=== PATIENT | male | born 1940 | race Caucasian/White ===

== ENCOUNTER 2021-07-23 10:01 | Day surgery (SDC) | payer OTHER ==
[2021-07-20 16:51] VITALS: BMI 32.1
[2021-07-23] MEDS ORDERED: PROPOFOL 20 ML ONE ×3 (11:42)
[2021-07-23 12:44] VITALS: TEMP 98.4
[2021-07-23 12:48] VITALS: BP 130/66; PULSE 68
== END 2021-07-23 13:10 | disposition home or self-care (01) ==
LOC: FASU-ENDO 10:01
PROVIDERS: ATTEND Internal Medicine Gastroenterology
PROC: 0DB68ZX Excision of Stomach, Via Natural or Artificial Opening Endoscopic, Diagnostic (ICD-10-PCS; 2021-07-23)
PROC: 0DB98ZX Excision of Duodenum, Via Natural or Artificial Opening Endoscopic, Diagnostic (ICD-10-PCS; principal; 2021-07-23 11:59)
DX: D50.9 Iron deficiency anemia, unspecified (principal); K29.50 Unspecified chronic gastritis without bleeding
CPT/HCPCS: 82962

== ENCOUNTER 2022-06-11 13:31 | Inpatient (IN) | payer OTHER ==
[2022-06-11] MEDS ORDERED: VANCOMYCIN 1 GM in D5W (PRE-DOCKED) 1,000 MG/250 ML IVPB ONE (14:49)
[2022-06-11] MEDS ORDERED: PIPERACILLIN/TAZOB 4.5 GM 4.5 GM in DEXTROSE 5%-WATER 100 ML IVPB ONE (14:49)
[2022-06-11] MEDS ORDERED: PIPERACILLIN/TAZOB 4.5 GM 4.5 GM/100 ML BAG IVPB ONE (16:15)
[2022-06-11 16:37] LABS: BASO % 0.8 % (0-2.0); EOS % 3.1 % (0-4.5); HEMATOCRIT 29.9 % (35.4-49); HEMOGLOBIN 10.2 GM/dL (11.7-16.9); MCH 28.9 pg (25.7-33.7); MEAN CELL VOLUME 84.9 fl (80-96); MEAN PLT VOLUME 7.1 fl (7.5-11.1); MONO % 7.1 % (3.8-10.2); PLATELET COUNT 238 10^3/uL (134-434); RBC 3.52 M/mm3 (4.00-5.60); RDW 18.1 % (11.9-15.9); WHITE BLOOD COUNT 8.3 K/mm3 (4.0-10.0)
[2022-06-11] MEDS ORDERED: VANCOMYCIN/WATER FOR INJ (PEG) 1,000 MG/200 ML BAG IVPB ONE (16:47)
[2022-06-11] MEDS ORDERED: SODIUM CHLORIDE 0.9% 500 ML INFUS.BAG IV ONE (16:53)
[2022-06-11 17:22] LABS: ERYTHROCYTE SEDIMENTATION RATE 85 mm/hr (0-20)
[2022-06-11 17:33] LABS: ALBUMIN 3.1 g/dl (3.4-5.0); BILIRUBIN,TOTAL 0.6 mg/dL (0.2-1); BLOOD UREA NITROGEN 42.3 mg/dL (7-18); CALCIUM 9.7 mg/dL (8.5-10.1); TOT PROT 6.5 g/dl (6.4-8.2)
[2022-06-11] MEDS ORDERED: LACTATED RINGERS SOLUTION 1,000 ML IV SCH (18:00)
[2022-06-11] MEDS ORDERED: ACETAMINOPHEN 325 MG TABLET (FP) PO PRN (18:00)
[2022-06-11 19:45] LABS: CALCIUM 9.6 mg/dL (8.5-10.1)
[2022-06-11 19:46] LABS: BLOOD UREA NITROGEN 42.8 mg/dL (7-18)
[2022-06-11 19:48] LABS: CREATININE 1.9 mg/dL (0.55-1.3)
[2022-06-11] MEDS ORDERED: CLINDAMYCIN 900 MG PREMIX IVPB 900 MG/50 ML BAG IVPB ONE (20:45)
[2022-06-11] MEDS: CLINDAMYCIN 900 MG PREMIX IVPB 900 MG/50 ML BAG IVPB SCH (20:59)
[2022-06-11] MEDS ORDERED: PIPERACILLIN/TAZOB 2.25 GM 2.25 GM in DEXTROSE 5%-WATER - 50 ML IVPB SCH (21:00)
[2022-06-11 21:43] LABS: BLOOD UREA NITROGEN 39.8 mg/dL (7-18)
[2022-06-11 21:46] LABS: CREATININE 1.8 mg/dL (0.55-1.3)
[2022-06-11] MEDS ORDERED: HEPARIN NA (PORCINE) 5,000 UNITS/ML 1ML VIAL SQ SCH (22:00)
[2022-06-11] MEDS ORDERED: APIXABAN 2.5 MG TABLET PO SCH (22:00)
[2022-06-11] MEDS ORDERED: APIXABAN 2.5 MG TABLET ONE (23:45)
[2022-06-11] MEDS ORDERED: FUROSEMIDE 40 MG/4 ML INJECTABLE VIAL ONE (23:46)
[2022-06-11] MEDS ORDERED: PIPERACILLIN/TAZOB 2.25 GM 2.25 GM/50 ML BAG IVPB ONE (23:46)
[2022-06-11] MEDS ORDERED: ATORVASTATIN CA 80 MG TABLET (FP) ONE (23:46)
[2022-06-11] MEDS: ATORVASTATIN CA 80 MG TABLET (FP) PO SCH (23:56)
[2022-06-11] MEDS: FUROSEMIDE 40 MG/4 ML INJECTABLE VIAL IVPUSH SCH (23:56)
[2022-06-11] MEDS: CARVEDILOL 25 MG TABLET (FP) PO SCH (23:57)
[2022-06-11] MEDS: PIPERACILLIN/TAZOB 2.25 GM 2.25 GM in DEXTROSE 5%-WATER - 50 ML IVPB SCH (23:57)
[2022-06-12] MEDS: CLINDAMYCIN 900 MG PREMIX IVPB 900 MG/50 ML BAG IVPB SCH ×2 (02:52→10:29)
[2022-06-12] MEDS: PIPERACILLIN/TAZOB 2.25 GM 2.25 GM in DEXTROSE 5%-WATER - 50 ML IVPB SCH ×2 (05:30→09:37)
[2022-06-12 06:23] VITALS: BMI 30.1
[2022-06-12] MEDS: INSULIN SLIDING SCALE (NOVOLOG) 1 VIAL SQ SCH ×3 (06:49→16:39)
[2022-06-12] MEDS: FUROSEMIDE 40 MG/4 ML INJECTABLE VIAL IVPUSH SCH (09:37)
[2022-06-12] MEDS: PANTOPRAZOLE 40 MG TABLET PO SCH (09:37)
[2022-06-12] MEDS: CARVEDILOL 25 MG TABLET (FP) PO SCH ×3 (09:37→21:44)
[2022-06-12] MEDS ORDERED: VANCOMYCIN 1 GM in D5W (PRE-DOCKED) 1,000 MG/250 ML IVPB SCH (10:00)
[2022-06-12] MEDS ORDERED: DIGOXIN 0.125 MG TABLET PO SCH (10:00)
[2022-06-12 10:15] LABS: BASO % 1.3 % (0-2.0); EOS % 4.1 % (0-4.5); HEMATOCRIT 27.7 % (35.4-49); HEMOGLOBIN 9.3 GM/dL (11.7-16.9); LYMPH % 8.9 % (8-40); MCH 28.2 pg (25.7-33.7); MCHC 33.6 g/dl (32.0-35.9); MEAN PLT VOLUME 6.9 fl (7.5-11.1); MONO % 5.9 % (3.8-10.2); NEUT % 79.8 % (42.8-82.8); PLATELET COUNT 219 10^3/uL (134-434); RBC 3.29 M/mm3 (4.00-5.60); RDW 17.7 % (11.9-15.9); WHITE BLOOD COUNT 7.3 K/mm3 (4.0-10.0)
[2022-06-12 10:40] LABS: MAGNESIUM 2.1 mg/dL (1.8-2.4)
[2022-06-12 10:44] LABS: PHOSPHOROUS 3.1 mg/dL (2.5-4.9)
[2022-06-12] MEDS ORDERED: INSULIN (NOVOLOG) ASPART 100 UNITS/ML 10ML VIAL ONE (11:08)
[2022-06-12] MEDS: FUROSEMIDE 40 MG TABLET (FP) PO SCH (13:07)
[2022-06-12 13:38] LABS: RETICULOCYTES 1.29 % (0.5-1.5)
[2022-06-12] MEDS: DOCUSATE SODIUM 100 MG CAPSULE (FP) PO SCH (14:33)
[2022-06-12] MEDS: POLYETHYLENE GLYCOL (HEALTHYLAX) 3350 17 GM PACKET PO SCH (14:33)
[2022-06-12] MEDS: CEFTRIAXONE 1 GM in DEXTROSE 5%-WATER - 50 ML IVPB SCH (14:33)
[2022-06-12] MEDS ORDERED: IRON SUCROSE INJECTION 200 MG in SODIUM CHLORIDE 90 ML IVPB ONE (15:35)
[2022-06-12] MEDS ORDERED: VANCOMYCIN 1 GM/200 ML PREMIX BAG IVPB SCH (17:00)
[2022-06-12] MEDS: ATORVASTATIN CA 80 MG TABLET (FP) PO SCH (21:43)
[2022-06-13 02:45] LABS: PH,URINE 5.5 (5.0-8.0); URINE APPEARANCE CLEAR; URINE BILIRUBIN NEGATIVE (NEGATIVE); URINE COLOR YELLOW; URINE GLUCOSE (UA) NEGATIVE (NEGATIVE); URINE KETONE NEGATIVE (NEGATIVE); URINE LEUK ESTERASE NEGATIVE (NEGATIVE); URINE NITRITE NEGATIVE (NEGATIVE); URINE PROTEIN NEGATIVE (NEGATIVE); URINE UROBILINOGEN 0.2 mg/dL (0.2-1.0)
[2022-06-13] MEDS: FUROSEMIDE 40 MG TABLET (FP) PO SCH ×2 (05:58→14:18)
[2022-06-13] MEDS: INSULIN SLIDING SCALE (NOVOLOG) 1 VIAL SQ SCH ×3 (06:38→17:19)
[2022-06-13] MEDS: CARVEDILOL 25 MG TABLET (FP) PO SCH ×2 (09:24→22:38)
[2022-06-13] MEDS: DOCUSATE SODIUM 100 MG CAPSULE (FP) PO SCH (09:24)
[2022-06-13] MEDS: POLYETHYLENE GLYCOL (HEALTHYLAX) 3350 17 GM PACKET PO SCH (09:24)
[2022-06-13] MEDS: PANTOPRAZOLE 40 MG TABLET PO SCH (09:24)
[2022-06-13 13:36] LABS: EOS % 3.8 % (0-4.5); HEMATOCRIT 28.7 % (35.4-49); HEMOGLOBIN 9.9 GM/dL (11.7-16.9); LYMPH % 17.4 % (8-40); MCH 29.2 pg (25.7-33.7); MCHC 34.5 g/dl (32.0-35.9); MEAN CELL VOLUME 84.6 fl (80-96); MEAN PLT VOLUME 7.4 fl (7.5-11.1); MONO % 9.5 % (3.8-10.2); NEUT % 68.3 % (42.8-82.8); PLATELET COUNT 224 10^3/uL (134-434); RBC 3.39 M/mm3 (4.00-5.60); RDW 17.5 % (11.9-15.9); WHITE BLOOD COUNT 6.6 K/mm3 (4.0-10.0)
[2022-06-13 14:01] LABS: BLOOD UREA NITROGEN 39.4 mg/dL (7-18)
[2022-06-13 14:02] LABS: ALBUMIN 2.9 g/dl (3.4-5.0); CALCIUM 9.2 mg/dL (8.5-10.1)
[2022-06-13] MEDS ORDERED: SODIUM CHLORIDE 0.9% 500 ML INFUS.BAG IV ONE (14:03)
[2022-06-13 14:05] LABS: CREATININE 2.1 mg/dL (0.55-1.3)
[2022-06-13 14:07] LABS: BILIRUBIN,TOTAL 0.6 mg/dL (0.2-1)
[2022-06-13 14:08] LABS: TOT PROT 5.9 g/dl (6.4-8.2)
[2022-06-13] MEDS ORDERED: SODIUM CHLORIDE 500 ML IV STA (14:43)
[2022-06-13] MEDS: ATORVASTATIN CA 80 MG TABLET (FP) PO SCH (22:38)
[2022-06-14] MEDS: FUROSEMIDE 40 MG TABLET (FP) PO SCH ×2 (05:26→14:47)
[2022-06-14] MEDS: INSULIN SLIDING SCALE (NOVOLOG) 1 VIAL SQ SCH ×3 (06:03→17:02)
[2022-06-14 07:38] LABS: ALBUMIN 2.8 g/dl (3.4-5.0); BLOOD UREA NITROGEN 40.8 mg/dL (7-18); CALCIUM 9.3 mg/dL (8.5-10.1); MAGNESIUM 1.9 mg/dL (1.8-2.4)
[2022-06-14 07:41] LABS: CREATININE 2.1 mg/dL (0.55-1.3); PHOSPHOROUS 3.5 mg/dL (2.5-4.9)
[2022-06-14 07:42] LABS: BILIRUBIN,TOTAL 0.6 mg/dL (0.2-1); TOT PROT 5.8 g/dl (6.4-8.2)
[2022-06-14 07:43] LABS: BASO % 1.2 % (0-2.0); EOS % 5.3 % (0-4.5); HEMATOCRIT 28.1 % (35.4-49); HEMOGLOBIN 9.6 GM/dL (11.7-16.9); LYMPH % 17.8 % (8-40); MCH 28.8 pg (25.7-33.7); MEAN CELL VOLUME 84.8 fl (80-96); MEAN PLT VOLUME 7.5 fl (7.5-11.1); NEUT % 66.7 % (42.8-82.8); PLATELET COUNT 205 10^3/uL (134-434); RBC 3.31 M/mm3 (4.00-5.60); RDW 17.4 % (11.9-15.9); WHITE BLOOD COUNT 7.2 K/mm3 (4.0-10.0)
[2022-06-14] MEDS: CARVEDILOL 25 MG TABLET (FP) PO SCH ×2 (09:17→22:04)
[2022-06-14] MEDS: PANTOPRAZOLE 40 MG TABLET PO SCH (09:17)
[2022-06-14] MEDS: CEFTRIAXONE 1 GM in DEXTROSE 5%-WATER - 50 ML IVPB SCH (09:18)
[2022-06-14] MEDS: DOCUSATE SODIUM 100 MG CAPSULE (FP) PO SCH (09:18)
[2022-06-14] MEDS: POLYETHYLENE GLYCOL (HEALTHYLAX) 3350 17 GM PACKET PO SCH (09:18)
[2022-06-14] MEDS ORDERED: CEFTRIAXONE 1 GM in DEXTROSE 5%-WATER - 50 ML IVPB ONE (14:04)
[2022-06-14] MEDS: ATORVASTATIN CA 80 MG TABLET (FP) PO SCH (22:04)
[2022-06-15] MEDS: INSULIN SLIDING SCALE (NOVOLOG) 1 VIAL SQ SCH ×3 (06:03→16:25)
[2022-06-15 08:49] LABS: BASO % 1.5 % (0-2.0); HEMATOCRIT 27.9 % (35.4-49); HEMOGLOBIN 9.6 GM/dL (11.7-16.9); LYMPH % 18.1 % (8-40); MCH 29.2 pg (25.7-33.7); MCHC 34.3 g/dl (32.0-35.9); MEAN CELL VOLUME 85.1 fl (80-96); MEAN PLT VOLUME 7.5 fl (7.5-11.1); MONO % 7.9 % (3.8-10.2); NEUT % 67.5 % (42.8-82.8); PLATELET COUNT 201 10^3/uL (134-434); RBC 3.28 M/mm3 (4.00-5.60); RDW 17.3 % (11.9-15.9); WHITE BLOOD COUNT 7.6 K/mm3 (4.0-10.0)
[2022-06-15 09:08] LABS: BLOOD UREA NITROGEN 41.1 mg/dL (7-18); CALCIUM 9.2 mg/dL (8.5-10.1)
[2022-06-15 09:09] LABS: ALBUMIN 2.8 g/dl (3.4-5.0); MAGNESIUM 1.7 mg/dL (1.8-2.4)
[2022-06-15 09:12] LABS: PHOSPHOROUS 3.4 mg/dL (2.5-4.9)
[2022-06-15 09:13] LABS: BILIRUBIN,TOTAL 0.5 mg/dL (0.2-1); TOT PROT 5.7 g/dl (6.4-8.2)
[2022-06-15] MEDS: POLYETHYLENE GLYCOL (HEALTHYLAX) 3350 17 GM PACKET PO SCH ×2 (09:30→09:35)
[2022-06-15] MEDS: CARVEDILOL 25 MG TABLET (FP) PO SCH ×2 (09:30→22:16)
[2022-06-15] MEDS: PANTOPRAZOLE 40 MG TABLET PO SCH (09:30)
[2022-06-15] MEDS: FUROSEMIDE 40 MG TABLET (FP) PO SCH (09:30)
[2022-06-15] MEDS: DOCUSATE SODIUM 100 MG CAPSULE (FP) PO SCH (09:30)
[2022-06-15] MEDS ORDERED: CEFTRIAXONE 2 GM in DEXTROSE 5%-WATER 100 ML IVPB SCH (10:00)
[2022-06-15] MEDS ORDERED: INSULIN (NOVOLOG) ASPART 100 UNITS/ML 10ML VIAL ONE (21:44)
[2022-06-15] MEDS: ATORVASTATIN CA 80 MG TABLET (FP) PO SCH (22:16)
[2022-06-16] MEDS: INSULIN SLIDING SCALE (NOVOLOG) 1 VIAL SQ SCH ×3 (06:01→16:02)
[2022-06-16 08:25] LABS: BASO % 1.2 % (0-2.0); EOS % 4.1 % (0-4.5); HEMATOCRIT 27.8 % (35.4-49); HEMOGLOBIN 9.2 GM/dL (11.7-16.9); MCH 28.4 pg (25.7-33.7); MCHC 33.1 g/dl (32.0-35.9); MEAN CELL VOLUME 85.7 fl (80-96); MEAN PLT VOLUME 7.7 fl (7.5-11.1); MONO % 8.3 % (3.8-10.2); NEUT % 68.4 % (42.8-82.8); PLATELET COUNT 208 10^3/uL (134-434); RBC 3.24 M/mm3 (4.00-5.60); RDW 17.2 % (11.9-15.9); WHITE BLOOD COUNT 7.5 K/mm3 (4.0-10.0)
[2022-06-16 08:33] LABS: CALCIUM 9.5 mg/dL (8.5-10.1)
[2022-06-16 08:34] LABS: ALBUMIN 2.8 g/dl (3.4-5.0); BLOOD UREA NITROGEN 43.8 mg/dL (7-18); MAGNESIUM 1.7 mg/dL (1.8-2.4)
[2022-06-16 08:38] LABS: PHOSPHOROUS 3.4 mg/dL (2.5-4.9)
[2022-06-16 08:40] LABS: BILIRUBIN,TOTAL 0.5 mg/dL (0.2-1); TOT PROT 5.7 g/dl (6.4-8.2)
[2022-06-16] MEDS: PANTOPRAZOLE 40 MG TABLET PO SCH (09:22)
[2022-06-16] MEDS: POLYETHYLENE GLYCOL (HEALTHYLAX) 3350 17 GM PACKET PO SCH ×2 (09:22→09:24)
[2022-06-16] MEDS: FUROSEMIDE 40 MG TABLET (FP) PO SCH (09:22)
[2022-06-16] MEDS: CARVEDILOL 25 MG TABLET (FP) PO SCH ×2 (09:22→21:01)
[2022-06-16] MEDS: DOCUSATE SODIUM 100 MG CAPSULE (FP) PO SCH (09:22)
[2022-06-16] MEDS ORDERED: MAGNESIUM SULF 50% (8.12 MEQ/2 ML-1 GM VIAL) IVPB ONE (14:45)
[2022-06-16] MEDS ORDERED: INSULIN (NOVOLOG) ASPART 100 UNITS/ML 10ML VIAL ONE (20:48)
[2022-06-16] MEDS: ATORVASTATIN CA 80 MG TABLET (FP) PO SCH (21:01)
[2022-06-17] MEDS: INSULIN SLIDING SCALE (NOVOLOG) 1 VIAL SQ SCH ×3 (07:10→17:06)
[2022-06-17] MEDS: POLYETHYLENE GLYCOL (HEALTHYLAX) 3350 17 GM PACKET PO SCH (09:00)
[2022-06-17] MEDS: FUROSEMIDE 40 MG TABLET (FP) PO SCH (09:00)
[2022-06-17] MEDS: DOCUSATE SODIUM 100 MG CAPSULE (FP) PO SCH (09:00)
[2022-06-17] MEDS: PANTOPRAZOLE 40 MG TABLET PO SCH (09:00)
[2022-06-17] MEDS: CARVEDILOL 25 MG TABLET (FP) PO SCH ×2 (09:00→21:58)
[2022-06-17 09:20] LABS: BASO % 1.2 % (0-2.0); EOS % 3.9 % (0-4.5); HEMATOCRIT 28.7 % (35.4-49); HEMOGLOBIN 9.6 GM/dL (11.7-16.9); LYMPH % 17.6 % (8-40); MCH 28.6 pg (25.7-33.7); MCHC 33.6 g/dl (32.0-35.9); MEAN CELL VOLUME 85.2 fl (80-96); MEAN PLT VOLUME 7.7 fl (7.5-11.1); MONO % 7.8 % (3.8-10.2); NEUT % 69.5 % (42.8-82.8); PLATELET COUNT 203 10^3/uL (134-434); RBC 3.37 M/mm3 (4.00-5.60); RDW 17.5 % (11.9-15.9); WHITE BLOOD COUNT 7.5 K/mm3 (4.0-10.0)
[2022-06-17 09:52] LABS: BLOOD UREA NITROGEN 40.6 mg/dL (7-18); CALCIUM 9.4 mg/dL (8.5-10.1)
[2022-06-17 09:53] LABS: ALBUMIN 2.8 g/dl (3.4-5.0); MAGNESIUM 2.2 mg/dL (1.8-2.4)
[2022-06-17 09:56] LABS: CREATININE 1.9 mg/dL (0.55-1.3); PHOSPHOROUS 2.8 mg/dL (2.5-4.9)
[2022-06-17 09:57] LABS: TOT PROT 5.8 g/dl (6.4-8.2)
[2022-06-17 10:06] LABS: BILIRUBIN,TOTAL 0.5 mg/dL (0.2-1)
[2022-06-17] MEDS: ATORVASTATIN CA 80 MG TABLET (FP) PO SCH (21:58)
[2022-06-18] MEDS: INSULIN SLIDING SCALE (NOVOLOG) 1 VIAL SQ SCH ×3 (07:00→16:27)
[2022-06-18] MEDS: POLYETHYLENE GLYCOL (HEALTHYLAX) 3350 17 GM PACKET PO SCH (09:01)
[2022-06-18] MEDS: DOCUSATE SODIUM 100 MG CAPSULE (FP) PO SCH (09:05)
[2022-06-18] MEDS: FUROSEMIDE 40 MG TABLET (FP) PO SCH (09:05)
[2022-06-18] MEDS: CARVEDILOL 25 MG TABLET (FP) PO SCH ×2 (09:06→21:19)
[2022-06-18] MEDS: PANTOPRAZOLE 40 MG TABLET PO SCH (09:06)
[2022-06-18 09:33] LABS: BASO % 1.4 % (0-2.0); HEMATOCRIT 27.3 % (35.4-49); HEMOGLOBIN 9.1 GM/dL (11.7-16.9); MCH 28.5 pg (25.7-33.7); MCHC 33.4 g/dl (32.0-35.9); MEAN CELL VOLUME 85.4 fl (80-96); MONO % 7.7 % (3.8-10.2); NEUT % 66.9 % (42.8-82.8); PLATELET COUNT 182 10^3/uL (134-434); RDW 16.7 % (11.9-15.9); WHITE BLOOD COUNT 7.3 K/mm3 (4.0-10.0)
[2022-06-18 09:58] LABS: ALBUMIN 2.8 g/dl (3.4-5.0); BLOOD UREA NITROGEN 39.4 mg/dL (7-18)
[2022-06-18 10:00] LABS: CALCIUM 9.3 mg/dL (8.5-10.1)
[2022-06-18 10:01] LABS: CREATININE 1.7 mg/dL (0.55-1.3); PHOSPHOROUS 2.9 mg/dL (2.5-4.9)
[2022-06-18 10:02] LABS: BILIRUBIN,TOTAL 0.5 mg/dL (0.2-1); TOT PROT 5.6 g/dl (6.4-8.2)
[2022-06-18] MEDS ORDERED: LIDOCAINE HCL 2% (20ML MULTI-DOSE VIAL) ONE (14:14)
[2022-06-18] MEDS ORDERED: LIDOCAINE HCL 2% (50ML VIAL) NR ONE (15:44)
[2022-06-18] MEDS ORDERED: BUPIVACAINE HCL/PF 0.5% (5 MG/ML) 30 ML VIAL IJ ONE (16:10)
[2022-06-18] MEDS ORDERED: ONDANSETRON 4 MG/2 ML VIAL IVPUSH PRN ×2 (16:21→16:48)
[2022-06-18] MEDS ORDERED: LACTATED RINGERS SOLUTION 1,000 ML IV SCH ×2 (16:30→16:48)
[2022-06-18] MEDS ORDERED: ACETAMINOPHEN 325 MG TABLET (FP) PO PRN (16:48)
[2022-06-18] MEDS: ATORVASTATIN CA 80 MG TABLET (FP) PO SCH (21:19)
[2022-06-19] MEDS: INSULIN SLIDING SCALE (NOVOLOG) 1 VIAL SQ SCH ×3 (06:07→16:20)
[2022-06-19 08:27] LABS: BASO % 1.3 % (0-2.0); EOS % 4.3 % (0-4.5); HEMATOCRIT 26.9 % (35.4-49); HEMOGLOBIN 9.2 GM/dL (11.7-16.9); LYMPH % 14.6 % (8-40); MCH 29.3 pg (25.7-33.7); MCHC 34.4 g/dl (32.0-35.9); MEAN CELL VOLUME 85.2 fl (80-96); MEAN PLT VOLUME 7.6 fl (7.5-11.1); MONO % 6.7 % (3.8-10.2); NEUT % 73.1 % (42.8-82.8); PLATELET COUNT 178 10^3/uL (134-434); RBC 3.15 M/mm3 (4.00-5.60); RDW 16.8 % (11.9-15.9); WHITE BLOOD COUNT 7.2 K/mm3 (4.0-10.0)
[2022-06-19 08:53] LABS: CALCIUM 9.3 mg/dL (8.5-10.1)
[2022-06-19 08:54] LABS: ALBUMIN 2.8 g/dl (3.4-5.0); BLOOD UREA NITROGEN 37.7 mg/dL (7-18); MAGNESIUM 1.9 mg/dL (1.8-2.4)
[2022-06-19 08:57] LABS: CREATININE 1.8 mg/dL (0.55-1.3); PHOSPHOROUS 2.8 mg/dL (2.5-4.9)
[2022-06-19 08:58] LABS: BILIRUBIN,TOTAL 0.6 mg/dL (0.2-1); TOT PROT 5.6 g/dl (6.4-8.2)
[2022-06-19] MEDS: FUROSEMIDE 40 MG TABLET (FP) PO SCH (09:11)
[2022-06-19] MEDS: CARVEDILOL 25 MG TABLET (FP) PO SCH ×2 (09:12→21:10)
[2022-06-19] MEDS: APIXABAN 2.5 MG TABLET PO SCH ×2 (09:12→21:11)
[2022-06-19] MEDS: DOCUSATE SODIUM 100 MG CAPSULE (FP) PO SCH (09:12)
[2022-06-19] MEDS: PANTOPRAZOLE 40 MG TABLET PO SCH (09:12)
[2022-06-19] MEDS: POLYETHYLENE GLYCOL (HEALTHYLAX) 3350 17 GM PACKET PO SCH (09:40)
[2022-06-19] MEDS: CEFTRIAXONE 1 GM in DEXTROSE 5%-WATER - 50 ML IVPB SCH (17:39)
[2022-06-19] MEDS ORDERED: INSULIN (NOVOLOG) ASPART 100 UNITS/ML 10ML VIAL ONE (18:30)
[2022-06-19] MEDS: ATORVASTATIN CA 80 MG TABLET (FP) PO SCH (21:11)
[2022-06-20] MEDS: INSULIN SLIDING SCALE (NOVOLOG) 1 VIAL SQ SCH ×3 (06:14→17:17)
[2022-06-20] MEDS: CEFTRIAXONE 1 GM in DEXTROSE 5%-WATER - 50 ML IVPB SCH (09:04)
[2022-06-20] MEDS: APIXABAN 2.5 MG TABLET PO SCH ×2 (09:07→21:19)
[2022-06-20] MEDS: DOCUSATE SODIUM 100 MG CAPSULE (FP) PO SCH (09:08)
[2022-06-20] MEDS: CARVEDILOL 25 MG TABLET (FP) PO SCH ×2 (09:08→21:23)
[2022-06-20] MEDS: FUROSEMIDE 40 MG TABLET (FP) PO SCH (09:08)
[2022-06-20] MEDS: POLYETHYLENE GLYCOL (HEALTHYLAX) 3350 17 GM PACKET PO SCH (09:08)
[2022-06-20] MEDS: PANTOPRAZOLE 40 MG TABLET PO SCH (09:08)
[2022-06-20 09:30] LABS: BASO % 1.3 % (0-2.0); HEMATOCRIT 29.2 % (35.4-49); HEMOGLOBIN 9.7 GM/dL (11.7-16.9); LYMPH % 15.8 % (8-40); MCH 28.6 pg (25.7-33.7); MCHC 33.4 g/dl (32.0-35.9); MEAN CELL VOLUME 85.8 fl (80-96); MEAN PLT VOLUME 7.5 fl (7.5-11.1); NEUT % 71.9 % (42.8-82.8); PLATELET COUNT 201 10^3/uL (134-434); RDW 16.9 % (11.9-15.9); WHITE BLOOD COUNT 8.2 K/mm3 (4.0-10.0)
[2022-06-20 09:53] LABS: CALCIUM 9.7 mg/dL (8.5-10.1)
[2022-06-20 09:54] LABS: BLOOD UREA NITROGEN 38.6 mg/dL (7-18); MAGNESIUM 1.7 mg/dL (1.8-2.4)
[2022-06-20 09:57] LABS: CREATININE 1.8 mg/dL (0.55-1.3); PHOSPHOROUS 2.5 mg/dL (2.5-4.9)
[2022-06-20 09:58] LABS: BILIRUBIN,TOTAL 0.6 mg/dL (0.2-1); TOT PROT 6.1 g/dl (6.4-8.2)
[2022-06-20] MEDS ORDERED: MAGNESIUM 2GM/50ML STERILE WATER IVPB IVPB ONE (17:27)
[2022-06-20] MEDS ORDERED: MAGNESIUM SULF 50% (8.12 MEQ/2 ML-1 GM VIAL) IVPB ONE (17:46)
[2022-06-20] MEDS: ATORVASTATIN CA 80 MG TABLET (FP) PO SCH (21:19)
[2022-06-21] MEDS: INSULIN SLIDING SCALE (NOVOLOG) 1 VIAL SQ SCH ×3 (06:09→16:39)
[2022-06-21 09:17] LABS: BASO % 1.9 % (0-2.0); EOS % 5.3 % (0-4.5); HEMATOCRIT 26.2 % (35.4-49); HEMOGLOBIN 8.8 GM/dL (11.7-16.9); LYMPH % 22.3 % (8-40); MCH 28.5 pg (25.7-33.7); MCHC 33.7 g/dl (32.0-35.9); MEAN CELL VOLUME 84.7 fl (80-96); MEAN PLT VOLUME 7.9 fl (7.5-11.1); MONO % 7.8 % (3.8-10.2); NEUT % 62.7 % (42.8-82.8); PLATELET COUNT 189 10^3/uL (134-434); RBC 3.09 M/mm3 (4.00-5.60); WHITE BLOOD COUNT 6.2 K/mm3 (4.0-10.0)
[2022-06-21 09:38] LABS: BLOOD UREA NITROGEN 41.4 mg/dL (7-18); CALCIUM 9.4 mg/dL (8.5-10.1)
[2022-06-21 09:39] LABS: ALBUMIN 2.7 g/dl (3.4-5.0)
[2022-06-21 09:43] LABS: CREATININE 1.8 mg/dL (0.55-1.3); PHOSPHOROUS 3.2 mg/dL (2.5-4.9)
[2022-06-21 09:44] LABS: BILIRUBIN,TOTAL 0.5 mg/dL (0.2-1); TOT PROT 5.5 g/dl (6.4-8.2)
[2022-06-21] MEDS: APIXABAN 2.5 MG TABLET PO SCH ×2 (09:50→21:04)
[2022-06-21] MEDS: PANTOPRAZOLE 40 MG TABLET PO SCH (09:50)
[2022-06-21] MEDS: POLYETHYLENE GLYCOL (HEALTHYLAX) 3350 17 GM PACKET PO SCH (09:50)
[2022-06-21] MEDS: LIDOCAINE 5% TOPICAL PATCH TP SCH (09:50)
[2022-06-21] MEDS: FUROSEMIDE 40 MG TABLET (FP) PO SCH (09:51)
[2022-06-21] MEDS: DOCUSATE SODIUM 100 MG CAPSULE (FP) PO SCH (09:51)
[2022-06-21] MEDS: CARVEDILOL 25 MG TABLET (FP) PO SCH ×2 (09:51→21:03)
[2022-06-21] MEDS: ATORVASTATIN CA 80 MG TABLET (FP) PO SCH (21:03)
[2022-06-21] MEDS: LIDOCAINE PATCH REMOVAL MC SCH (21:05)
[2022-06-22] MEDS: INSULIN SLIDING SCALE (NOVOLOG) 1 VIAL SQ SCH ×3 (07:16→16:30)
[2022-06-22] MEDS: DOCUSATE SODIUM 100 MG CAPSULE (FP) PO SCH (09:21)
[2022-06-22] MEDS: APIXABAN 2.5 MG TABLET PO SCH ×2 (09:22→21:10)
[2022-06-22] MEDS: FUROSEMIDE 40 MG TABLET (FP) PO SCH (09:22)
[2022-06-22] MEDS: CARVEDILOL 25 MG TABLET (FP) PO SCH ×2 (09:22→21:10)
[2022-06-22] MEDS: PANTOPRAZOLE 40 MG TABLET PO SCH (09:22)
[2022-06-22] MEDS: LIDOCAINE 5% TOPICAL PATCH TP SCH (09:23)
[2022-06-22] MEDS: POLYETHYLENE GLYCOL (HEALTHYLAX) 3350 17 GM PACKET PO SCH (09:23)
[2022-06-22 09:57] LABS: BASO % 1.2 % (0-2.0); EOS % 5.4 % (0-4.5); HEMATOCRIT 27.9 % (35.4-49); HEMOGLOBIN 9.3 GM/dL (11.7-16.9); LYMPH % 16.4 % (8-40); MCH 28.6 pg (25.7-33.7); MCHC 33.4 g/dl (32.0-35.9); MEAN CELL VOLUME 85.7 fl (80-96); MEAN PLT VOLUME 7.7 fl (7.5-11.1); MONO % 6.4 % (3.8-10.2); NEUT % 70.6 % (42.8-82.8); PLATELET COUNT 190 10^3/uL (134-434); RBC 3.26 M/mm3 (4.00-5.60); RDW 16.6 % (11.9-15.9); WHITE BLOOD COUNT 6.4 K/mm3 (4.0-10.0)
[2022-06-22 10:20] LABS: CALCIUM 9.6 mg/dL (8.5-10.1)
[2022-06-22 10:21] LABS: ALBUMIN 2.9 g/dl (3.4-5.0); BLOOD UREA NITROGEN 41.9 mg/dL (7-18); MAGNESIUM 1.9 mg/dL (1.8-2.4)
[2022-06-22 10:23] LABS: CREATININE 1.9 mg/dL (0.55-1.3)
[2022-06-22 10:25] LABS: BILIRUBIN,TOTAL 0.6 mg/dL (0.2-1); TOT PROT 5.6 g/dl (6.4-8.2)
[2022-06-22] MEDS: ATORVASTATIN CA 80 MG TABLET (FP) PO SCH (21:11)
[2022-06-22] MEDS: LIDOCAINE PATCH REMOVAL MC SCH (21:11)
[2022-06-23] MEDS: INSULIN SLIDING SCALE (NOVOLOG) 1 VIAL SQ SCH ×3 (06:25→16:15)
[2022-06-23] MEDS ORDERED: INSULIN (NOVOLOG) ASPART 100 UNITS/ML 10ML VIAL ONE (06:41)
[2022-06-23] MEDS: POLYETHYLENE GLYCOL (HEALTHYLAX) 3350 17 GM PACKET PO SCH (09:05)
[2022-06-23] MEDS: LIDOCAINE 5% TOPICAL PATCH TP SCH (09:05)
[2022-06-23] MEDS: PANTOPRAZOLE 40 MG TABLET PO SCH (09:06)
[2022-06-23] MEDS: CARVEDILOL 25 MG TABLET (FP) PO SCH ×2 (09:06→21:57)
[2022-06-23] MEDS: DOCUSATE SODIUM 100 MG CAPSULE (FP) PO SCH (09:06)
[2022-06-23] MEDS: FUROSEMIDE 40 MG TABLET (FP) PO SCH (09:06)
[2022-06-23] MEDS: APIXABAN 2.5 MG TABLET PO SCH ×2 (09:06→21:57)
[2022-06-23 09:37] LABS: BASO % 1.9 % (0-2.0); EOS % 4.9 % (0-4.5); HEMATOCRIT 28.2 % (35.4-49); HEMOGLOBIN 9.3 GM/dL (11.7-16.9); LYMPH % 16.9 % (8-40); MCH 28.4 pg (25.7-33.7); MCHC 33.1 g/dl (32.0-35.9); MEAN CELL VOLUME 85.7 fl (80-96); MEAN PLT VOLUME 7.8 fl (7.5-11.1); MONO % 6.5 % (3.8-10.2); NEUT % 69.8 % (42.8-82.8); PLATELET COUNT 188 10^3/uL (134-434); RBC 3.29 M/mm3 (4.00-5.60); RDW 16.3 % (11.9-15.9); WHITE BLOOD COUNT 6.3 K/mm3 (4.0-10.0)
[2022-06-23 10:09] LABS: ALBUMIN 2.7 g/dl (3.4-5.0); BLOOD UREA NITROGEN 38.2 mg/dL (7-18); MAGNESIUM 1.9 mg/dL (1.8-2.4)
[2022-06-23 10:12] LABS: CREATININE 1.6 mg/dL (0.55-1.3); PHOSPHOROUS 2.9 mg/dL (2.5-4.9)
[2022-06-23 10:14] LABS: BILIRUBIN,TOTAL 0.5 mg/dL (0.2-1); TOT PROT 5.6 g/dl (6.4-8.2)
[2022-06-23] MEDS: ATORVASTATIN CA 80 MG TABLET (FP) PO SCH (21:57)
[2022-06-23] MEDS: LIDOCAINE PATCH REMOVAL MC SCH (21:57)
[2022-06-23] MEDS ORDERED: INSULIN (LEVEMIR) 100 UNITS/ML UNITS SQ SCH ×2 (22:00)
[2022-06-24] MEDS: INSULIN SLIDING SCALE (NOVOLOG) 1 VIAL SQ SCH ×3 (06:31→16:28)
[2022-06-24 09:02] VITALS: RESP 18
[2022-06-24 09:29] LABS: BASO % 1.4 % (0-2.0); HEMATOCRIT 28.2 % (35.4-49); HEMOGLOBIN 9.5 GM/dL (11.7-16.9); LYMPH % 15.2 % (8-40); MCH 29.5 pg (25.7-33.7); MCHC 33.7 g/dl (32.0-35.9); MEAN CELL VOLUME 87.4 fl (80-96); MEAN PLT VOLUME 7.5 fl (7.5-11.1); MONO % 6.7 % (3.8-10.2); NEUT % 71.7 % (42.8-82.8); PLATELET COUNT 176 10^3/uL (134-434); RBC 3.22 M/mm3 (4.00-5.60); RDW 16.7 % (11.9-15.9); WHITE BLOOD COUNT 6.7 K/mm3 (4.0-10.0)
[2022-06-24] MEDS: LIDOCAINE 5% TOPICAL PATCH TP SCH (09:48)
[2022-06-24] MEDS: POLYETHYLENE GLYCOL (HEALTHYLAX) 3350 17 GM PACKET PO SCH (09:51)
[2022-06-24] MEDS: FUROSEMIDE 40 MG TABLET (FP) PO SCH (09:51)
[2022-06-24] MEDS: DOCUSATE SODIUM 100 MG CAPSULE (FP) PO SCH (09:51)
[2022-06-24] MEDS: PANTOPRAZOLE 40 MG TABLET PO SCH (09:51)
[2022-06-24] MEDS: APIXABAN 2.5 MG TABLET PO SCH (09:51)
[2022-06-24] MEDS: CARVEDILOL 25 MG TABLET (FP) PO SCH (09:51)
[2022-06-24 10:01] LABS: ALBUMIN 2.8 g/dl (3.4-5.0); MAGNESIUM 1.8 mg/dL (1.8-2.4)
[2022-06-24 10:03] LABS: BLOOD UREA NITROGEN 38.1 mg/dL (7-18)
[2022-06-24 10:04] LABS: PHOSPHOROUS 2.6 mg/dL (2.5-4.9)
[2022-06-24 10:05] LABS: BILIRUBIN,TOTAL 0.6 mg/dL (0.2-1); TOT PROT 5.6 g/dl (6.4-8.2)
[2022-06-24 10:06] LABS: CREATININE 1.6 mg/dL (0.55-1.3)
[2022-06-24 14:52] VITALS: BP 135/59; PULSE 66; TEMP 98.3
== END 2022-06-24 17:20 | disposition home or self-care (01) | DRG 256 ==
LOC: JER 13:31 → JERBED 21:42 → J6S 06-12 00:55 → J7W 06-13 18:53
PROVIDERS: ADMIT Internal Medicine; ATTEND Internal Medicine
PROC: 0Y6P0Z3 Detachment at Right 1st Toe, Low, Open Approach (ICD-10-PCS; principal; 2022-06-18 16:00)
DX: E11.52 Type 2 diabetes mellitus with diabetic peripheral angiopathy with gangrene (principal); I13.0 Hypertensive heart and chronic kidney disease with heart failure and stage 1 through stage 4 chronic kidney disease, or unspecified chronic kidney disease; L03.115 Cellulitis of right lower limb; M86.9 Osteomyelitis, unspecified; L97.929 Non-pressure chronic ulcer of unspecified part of left lower leg with unspecified severity; N17.9 Acute kidney failure, unspecified; I96 Gangrene, not elsewhere classified; I48.20 Chronic atrial fibrillation, unspecified; E11.621 Type 2 diabetes mellitus with foot ulcer; E78.5 Hyperlipidemia, unspecified; L97.511 Non-pressure chronic ulcer of other part of right foot limited to breakdown of skin; E11.69 Type 2 diabetes mellitus with other specified complication; N18.2 Chronic kidney disease, stage 2 (mild); E83.42 Hypomagnesemia; E11.65 Type 2 diabetes mellitus with hyperglycemia; I50.9 Heart failure, unspecified
CPT/HCPCS: 11042; 36415; 71045-TC-FY; 71250-TC; 73630-TC-RT-FY; 73700-TC-RT; 73718-TC-RT; 75635-TC; 76775-TC; 80048; 80053; 81003; 82570; 82607; 82728; 82746; 82962; 83540; 83550; 83615; 83735; 84100; 84156; 84300; 84439; 84443; 84466; 85025; 85045; 85651; 86140; 87040; 87070; 87075; 87086; 87205; 88305-TC; 88311-TC; 93005; 93010; 93926-TC; 94760; 97116-GP; 97162-GP; 99285-25; C9803-CS; J1756; Q9967; U0003; U0005

== ENCOUNTER 2022-07-15 12:40 | Observation (INO) | payer OTHER ==
[2022-07-15 14:38] LABS: BASO % 0.8 % (0-2.0); EOS % 1.6 % (0-4.5); HEMATOCRIT 32.3 % (35.4-49); HEMOGLOBIN 10.6 GM/dL (11.7-16.9); LYMPH % 15.2 % (8-40); MCHC 32.9 g/dl (32.0-35.9); MEAN CELL VOLUME 85.1 fl (80-96); MEAN PLT VOLUME 7.7 fl (7.5-11.1); MONO % 7.3 % (3.8-10.2); NEUT % 75.1 % (42.8-82.8); PLATELET COUNT 239 10^3/uL (134-434); RDW 15.1 % (11.9-15.9); WHITE BLOOD COUNT 8.3 K/mm3 (4.0-10.0)
[2022-07-15 14:48] LABS: INR 1.32 (0.83-1.09); PROTHROMBIN TIME (PATIENT) 15.2 SEC (9.7-13.0)
[2022-07-15 14:51] LABS: ACTIVATED PTT 30.3 SECONDS (25.2-36.5)
[2022-07-15 15:02] LABS: BLOOD UREA NITROGEN 71.2 mg/dL (7-18); CALCIUM 9.8 mg/dL (8.5-10.1)
[2022-07-15 15:03] LABS: ALBUMIN 2.9 g/dl (3.4-5.0); MAGNESIUM 2.5 mg/dL (1.8-2.4)
[2022-07-15 15:06] LABS: CREATININE 2.2 mg/dL (0.55-1.3)
[2022-07-15 15:07] LABS: BILIRUBIN,TOTAL 0.6 mg/dL (0.2-1); TOT PROT 6.3 g/dl (6.4-8.2)
[2022-07-15 16:22] LABS: URINE APPEARANCE CLEAR; URINE BILIRUBIN NEGATIVE (NEGATIVE); URINE COLOR YELLOW; URINE GLUCOSE (UA) NEGATIVE (NEGATIVE); URINE KETONE NEGATIVE (NEGATIVE); URINE LEUK ESTERASE NEGATIVE (NEGATIVE); URINE NITRITE NEGATIVE (NEGATIVE); URINE PROTEIN NEGATIVE (NEGATIVE); URINE UROBILINOGEN 0.2 mg/dL (0.2-1.0)
[2022-07-15] MEDS ORDERED: COLCHICINE 0.6 MG CAP PO ONE (18:17)
[2022-07-15] MEDS ORDERED: COLCHICINE 0.6 MG TAB ONE ×2 (18:32→21:04)
[2022-07-15] MEDS ORDERED: COLCHICINE 0.6 MG TAB PO ONE (20:37)
[2022-07-15] MEDS ORDERED: oxyCODONE HCL 5 MG TABLET PO PRN (20:44)
[2022-07-15] MEDS ORDERED: ACETAMINOPHEN 1000 MG/100 ML BAG IVPB PRN (20:44)
[2022-07-15] MEDS ORDERED: predniSONE 20 MG TABLET (UD) PO SCH (20:45)
[2022-07-15] MEDS ORDERED: predniSONE 10 MG TABLET (UD) ONE (21:04)
[2022-07-15] MEDS ORDERED: ACETAMINOPHEN INJECTION 100 ML IVPB ONE (21:22)
[2022-07-15] MEDS: LACTATED RINGERS SOLUTION 1,000 ML/1,000 ML INFUS.BAG IV SCH (21:27)
[2022-07-15] MEDS: predniSONE 40 MG, predniSONE 10 MG PO SCH (23:27)
[2022-07-16] MEDS: APIXABAN 2.5 MG TABLET PO SCH ×3 (02:29→21:24)
[2022-07-16] MEDS: CARVEDILOL 25 MG TABLET (FP) PO SCH ×3 (02:29→21:23)
[2022-07-16] MEDS: INSULIN SLIDING SCALE (NOVOLOG) 1 VIAL SQ SCH ×5 (02:30→21:26)
[2022-07-16] MEDS: ATORVASTATIN CA 80 MG TABLET (FP) PO SCH ×2 (02:30→21:24)
[2022-07-16 03:14] VITALS: BMI 29.9
[2022-07-16 09:22] LABS: BASO % 0.2 % (0-2.0); HEMATOCRIT 31.2 % (35.4-49); HEMOGLOBIN 10.4 GM/dL (11.7-16.9); LYMPH % 9.8 % (8-40); MCHC 33.3 g/dl (32.0-35.9); MEAN CELL VOLUME 84.2 fl (80-96); MEAN PLT VOLUME 7.9 fl (7.5-11.1); PLATELET COUNT 242 10^3/uL (134-434); RBC 3.71 M/mm3 (4.00-5.60); RDW 14.9 % (11.9-15.9); WHITE BLOOD COUNT 7.8 K/mm3 (4.0-10.0)
[2022-07-16 09:44] LABS: MAGNESIUM 2.2 mg/dL (1.8-2.4)
[2022-07-16 09:45] LABS: ALBUMIN 2.7 g/dl (3.4-5.0); CALCIUM 9.6 mg/dL (8.5-10.1)
[2022-07-16 09:46] LABS: BLOOD UREA NITROGEN 67.4 mg/dL (7-18)
[2022-07-16 09:49] LABS: PHOSPHOROUS 3.6 mg/dL (2.5-4.9)
[2022-07-16 09:50] LABS: BILIRUBIN,TOTAL 0.5 mg/dL (0.2-1); TOT PROT 5.9 g/dl (6.4-8.2)
[2022-07-16] MEDS ORDERED: ENOXAPARIN NA (PORCINE) 40 MG/0.4 ML DISP.SYRIN SQ SCH (10:00)
[2022-07-16] MEDS ORDERED: LOSARTAN POTASSIUM 50 MG TABLET PO SCH (10:00)
[2022-07-16] MEDS ORDERED: DIGOXIN 0.125 MG TABLET PO SCH (10:00)
[2022-07-16] MEDS: LACTATED RINGERS SOLUTION 1,000 ML/1,000 ML INFUS.BAG IV SCH ×2 (11:00→21:34)
[2022-07-16] MEDS ORDERED: INSULIN (NOVOLOG) ASPART 100 UNITS/ML 10ML VIAL ONE (11:06)
[2022-07-16 18:24] VITALS: TEMP 98.2
[2022-07-16] MEDS: predniSONE 40 MG, predniSONE 10 MG PO SCH (21:23)
[2022-07-16 21:40] VITALS: BP 126/69; PULSE 69; RESP 17
[2022-07-20] MEDS ORDERED: predniSONE 20 MG TABLET (UD) PO SCH (22:00)
[2022-07-23] MEDS ORDERED: predniSONE 10 MG TABLET (UD) PO SCH (22:00)
[2022-07-26] MEDS ORDERED: predniSONE 20 MG TABLET (UD) PO SCH (22:00)
[2022-07-29] MEDS ORDERED: predniSONE 10 MG TABLET (UD) PO SCH (22:00)
== END 2022-07-16 21:40 | disposition home or self-care (01) ==
LOC: JER 12:40 → INTOOBSV 19:56 → UNDOADMOB 19:56 → JERBED 19:56 → J7W 07-16 01:48 → JERBED 07-16 14:31
PROVIDERS: ADMIT Internal Medicine; ATTEND Internal Medicine
PROC: 3E033NZ Introduction of Analgesics, Hypnotics, Sedatives into Peripheral Vein, Percutaneous Approach (ICD-10-PCS; principal; 2022-07-16)
PROC: 3E013VG Introduction of Insulin into Subcutaneous Tissue, Percutaneous Approach (ICD-10-PCS; 2022-07-16)
DX: E79.0 Hyperuricemia without signs of inflammatory arthritis and tophaceous disease (principal); I13.10 Hypertensive heart and chronic kidney disease without heart failure, with stage 1 through stage 4 chronic kidney disease, or unspecified chronic kidney disease; N18.30 Chronic kidney disease, stage 3 unspecified; M86.9 Osteomyelitis, unspecified; R53.1 Weakness; Z88.2 Allergy status to sulfonamides; Z79.01 Long term (current) use of anticoagulants
CPT/HCPCS: 36415; 70450-TC; 73110-TC-RT-FY; 73130-TC-RT-FY; 76775-TC; 76882-TC-RT; 80053; 81003; 82436; 82570; 82728; 82962; 83540; 83550; 83605; 83615; 83735; 84100; 84133; 84156; 84300; 84540; 84550; 85025; 85045; 85610; 85651; 85730; 87086; 93005; 93010; 96372; 96374; 97116-GP; 97161-GP; 99285-25; C9803-CS; G0378; U0003; U0005

== ENCOUNTER 2022-11-12 11:09 | Inpatient (IN) | payer OTHER ==
[2022-11-12] MEDS ORDERED: LACTATED RINGERS SOLUTION 1000 ML INFUS.BAG IV ONE (12:09)
[2022-11-12] MEDS ORDERED: VANCOMYCIN 1 GM in D5W (PRE-DOCKED) 1,000 MG/250 ML (RESTRICTED TO ID ONLY IVPB ONE (12:10)
[2022-11-12] MEDS ORDERED: CEFTRIAXONE 1,000 MG in DEXTROSE 5%-WATER - 50 ML IVPB ONE (12:10)
[2022-11-12] MEDS ORDERED: VANCOMYCIN/WATER FOR INJ (PEG) 1,000 MG/200 ML BAG IVPB ONE (12:43)
[2022-11-12] MEDS ORDERED: CEFTRIAXONE 1 GM/50 ML BAG ONE (12:44)
[2022-11-12 13:22] LABS: VENOUS BASE EXCESS 3.8 mmol/L (-2-2); VENOUS O2 SATURATION 29.9 % (70-80); VENOUS PCO2 51.4 mmHg (38-52); VENOUS PH 7.38 (7.310-7.410)
[2022-11-12 13:27] LABS: BASO % 0.8 % (0-2.0); EOS % 3.2 % (0-4.5); HEMATOCRIT 27.8 % (35.4-49); HEMOGLOBIN 9.3 GM/dL (11.7-16.9); LYMPH % 16.6 % (8-40); MCH 28.2 pg (25.7-33.7); MCHC 33.3 g/dl (32.0-35.9); MEAN CELL VOLUME 84.5 fl (80-96); MEAN PLT VOLUME 7.9 fl (7.5-11.1); NEUT % 74.4 % (42.8-82.8); PLATELET COUNT 185 10^3/uL (134-434); RBC 3.29 M/mm3 (4.00-5.60); RDW 19.4 % (11.9-15.9)
[2022-11-12 13:45] LABS: CHLORIDE 103 mmol/L (98-107); SODIUM 139 mmol/L (136-145)
[2022-11-12 13:47] LABS: CALCIUM 9.6 mg/dL (8.5-10.1)
[2022-11-12 13:48] LABS: ANION GAP 7 MMOL/L (8-16); BLOOD UREA NITROGEN 51.2 mg/dL (7-18); CO2 29 mmol/L (21-32)
[2022-11-12 13:51] LABS: CREATININE 1.6 mg/dL (0.55-1.3); SGOT/AST 25 U/L (15-37); SGPT/ALT 32 U/L (13-61)
[2022-11-12 13:52] LABS: BILIRUBIN,TOTAL 0.6 mg/dL (0.2-1); TOT PROT 6.3 g/dl (6.4-8.2)
[2022-11-12 13:54] LABS: ALK PHOS 81 U/L (45-117); GLUCOSE,RANDOM 36 mg/dL (74-106)
[2022-11-12] MEDS ORDERED: DEXTROSE 50%-WATER - 25 GM/50 ML VIAL IVPUSH ONE (14:13)
[2022-11-12] MEDS ORDERED: DEXTROSE 50%-WATER 25 GM/50 ML DISP.SYRIN ONE (14:19)
[2022-11-12] MEDS: DEXTROSE 5%-NORMAL SALINE 1,000 ML IV SCH (14:30)
[2022-11-12] MEDS ORDERED: DEXTROSE 50%-WATER - 25 GM/50 ML VIAL IVPUSH PRN (18:53)
[2022-11-12 21:34] LABS: EPI CELLS 10 /uL (0-25.1); HYALINE CASTS 0 /uL (0-3.1); PH,URINE 5.5 (5.0-8.0); URINE APPEARANCE CLEAR; URINE BILIRUBIN NEGATIVE (NEGATIVE); URINE COLOR YELLOW; URINE GLUCOSE (UA) NEGATIVE (NEGATIVE); URINE KETONE NEGATIVE (NEGATIVE); URINE LEUK ESTERASE TRACE (NEGATIVE); URINE NITRITE POSITIVE (NEGATIVE); URINE PROTEIN NEGATIVE (NEGATIVE); URINE RBC 209 /uL (0-23.9); URINE UROBILINOGEN 0.2 mg/dL (0.2-1.0); URINE WBC 30 /uL (0-25.8)
[2022-11-12] MEDS: APIXABAN 5 MG TABLET PO SCH (21:54)
[2022-11-12] MEDS: CARVEDILOL 25 MG TABLET (FP) PO SCH (21:56)
[2022-11-12] MEDS: ATORVASTATIN CA 80 MG TABLET (FP) PO SCH (21:56)
[2022-11-12] MEDS: INSULIN SLIDING SCALE (NOVOLOG) 1 VIAL SQ SCH (21:57)
[2022-11-12 21:58] LABS: INR 1.3 (0.83-1.09)
[2022-11-12 22:00] LABS: ACTIVATED PTT 34.4 SECONDS (25.2-36.5)
[2022-11-12 23:21] LABS: URINE BACTERIA 160 /uL (0-1359)
[2022-11-13] MEDS: INSULIN SLIDING SCALE (NOVOLOG) 1 VIAL SQ SCH ×4 (06:02→22:19)
[2022-11-13 09:36] LABS: BASO % 0.8 % (0-2.0); EOS % 3.8 % (0-4.5); HEMATOCRIT 21.8 % (35.4-49); HEMOGLOBIN 7.6 GM/dL (11.7-16.9); LYMPH % 14.1 % (8-40); MCH 28.8 pg (25.7-33.7); MCHC 34.8 g/dl (32.0-35.9); MEAN PLT VOLUME 7.9 fl (7.5-11.1); MONO % 6.6 % (3.8-10.2); NEUT % 74.7 % (42.8-82.8); PLATELET COUNT 175 10^3/uL (134-434); RBC 2.63 M/mm3 (4.00-5.60); RDW 19.4 % (11.9-15.9); WHITE BLOOD COUNT 6.4 K/mm3 (4.0-10.0)
[2022-11-13] MEDS: APIXABAN 5 MG TABLET PO SCH ×2 (09:36→22:17)
[2022-11-13] MEDS: CARVEDILOL 25 MG TABLET (FP) PO SCH ×2 (09:37→22:19)
[2022-11-13] MEDS: LOSARTAN POTASSIUM 25 MG TABLET PO SCH (09:37)
[2022-11-13] MEDS: ALLOPURINOL 100 MG TABLET (FP) PO SCH (09:37)
[2022-11-13] MEDS: PANTOPRAZOLE 40 MG TABLET PO SCH (09:37)
[2022-11-13] MEDS: METOLAZONE 2.5 MG TABLET (FP) PO SCH (09:40)
[2022-11-13 09:48] LABS: INR 1.31 (0.83-1.09); PROTHROMBIN TIME (PATIENT) 15.2 SEC (9.7-13.0)
[2022-11-13 10:28] LABS: ALBUMIN 2.6 g/dl (3.4-5.0); BLOOD UREA NITROGEN 41.3 mg/dL (7-18); CALCIUM 9.2 mg/dL (8.5-10.1)
[2022-11-13 10:29] LABS: MAGNESIUM 1.8 mg/dL (1.8-2.4)
[2022-11-13 10:31] LABS: CREATININE 1.5 mg/dL (0.55-1.3); PHOSPHOROUS 3.3 mg/dL (2.5-4.9)
[2022-11-13 10:33] LABS: BILIRUBIN,TOTAL 0.6 mg/dL (0.2-1); TOT PROT 5.4 g/dl (6.4-8.2)
[2022-11-13] MEDS: FUROSEMIDE 40 MG TABLET (FP) PO SCH (11:04)
[2022-11-13] MEDS: TIOTROPIUM BROMIDE 2.5 MCG (SPIRIVA) RESPIMAT INHALER IH SCH (11:39)
[2022-11-13] MEDS: DEXTROSE 5%-NORMAL SALINE 1,000 ML IV SCH (14:38)
[2022-11-13] MEDS: INSULIN (LEVEMIR) 100 UNITS/ML UNITS SQ SCH (22:18)
[2022-11-13] MEDS: ATORVASTATIN CA 80 MG TABLET (FP) PO SCH (22:19)
[2022-11-14] MEDS: INSULIN SLIDING SCALE (NOVOLOG) 1 VIAL SQ SCH ×4 (06:46→22:08)
[2022-11-14] MEDS: LOSARTAN POTASSIUM 25 MG TABLET PO SCH (09:37)
[2022-11-14] MEDS: FUROSEMIDE 40 MG TABLET (FP) PO SCH (09:37)
[2022-11-14] MEDS: APIXABAN 5 MG TABLET PO SCH ×2 (09:37→22:46)
[2022-11-14] MEDS: CARVEDILOL 25 MG TABLET (FP) PO SCH ×2 (09:37→22:46)
[2022-11-14] MEDS: PANTOPRAZOLE 40 MG TABLET PO SCH (09:37)
[2022-11-14] MEDS: TIOTROPIUM BROMIDE 2.5 MCG (SPIRIVA) RESPIMAT INHALER IH SCH (09:38)
[2022-11-14] MEDS: ALLOPURINOL 100 MG TABLET (FP) PO SCH (09:38)
[2022-11-14] MEDS: COLLAGENASE CLOSTRIDIUM HIST. 30 GRAMS TUBE TP SCH (09:38)
[2022-11-14 10:19] LABS: BASO % 1.3 % (0-2.0); EOS % 5.3 % (0-4.5); HEMOGLOBIN 7.6 GM/dL (11.7-16.9); MCH 28.9 pg (25.7-33.7); MCHC 34.8 g/dl (32.0-35.9); MEAN CELL VOLUME 83.1 fl (80-96); MEAN PLT VOLUME 8.5 fl (7.5-11.1); NEUT % 64.4 % (42.8-82.8); PLATELET COUNT 178 10^3/uL (134-434); RBC 2.64 M/mm3 (4.00-5.60); RDW 18.7 % (11.9-15.9); WHITE BLOOD COUNT 5.3 K/mm3 (4.0-10.0)
[2022-11-14 10:37] LABS: CALCIUM 9.1 mg/dL (8.5-10.1); MAGNESIUM 1.6 mg/dL (1.8-2.4)
[2022-11-14 10:40] LABS: CREATININE 1.6 mg/dL (0.55-1.3)
[2022-11-14 10:41] LABS: PHOSPHOROUS 2.9 mg/dL (2.5-4.9)
[2022-11-14 14:37] VITALS: BMI 30.2
[2022-11-14] MEDS ORDERED: MAGNESIUM OXIDE 400 MG TABLET (FP) PO ONE (14:51)
[2022-11-14] MEDS: DOCUSATE SODIUM 100 MG CAPSULE (FP) PO SCH (22:46)
[2022-11-14] MEDS: ATORVASTATIN CA 80 MG TABLET (FP) PO SCH (22:47)
[2022-11-14] MEDS: INSULIN (LEVEMIR) 100 UNITS/ML UNITS SQ SCH (22:52)
[2022-11-15] MEDS: INSULIN SLIDING SCALE (NOVOLOG) 1 VIAL SQ SCH ×2 (06:09→11:38)
[2022-11-15] MEDS: DOCUSATE SODIUM 100 MG CAPSULE (FP) PO SCH ×2 (06:09→14:02)
[2022-11-15] MEDS ORDERED: AMINO ACIDS/PROTEIN HYDROLYS 30 ML LIQUID.PKT PO SCH (08:00)
[2022-11-15] MEDS: FUROSEMIDE 40 MG TABLET (FP) PO SCH (10:24)
[2022-11-15] MEDS: LOSARTAN POTASSIUM 25 MG TABLET PO SCH (10:24)
[2022-11-15] MEDS: PANTOPRAZOLE 40 MG TABLET PO SCH (10:24)
[2022-11-15] MEDS: CARVEDILOL 25 MG TABLET (FP) PO SCH (10:24)
[2022-11-15] MEDS: ALLOPURINOL 100 MG TABLET (FP) PO SCH (10:24)
[2022-11-15] MEDS: APIXABAN 5 MG TABLET PO SCH (10:25)
[2022-11-15] MEDS: TIOTROPIUM BROMIDE 2.5 MCG (SPIRIVA) RESPIMAT INHALER IH SCH (10:25)
[2022-11-15] MEDS: COLLAGENASE CLOSTRIDIUM HIST. 30 GRAMS TUBE TP SCH (10:26)
[2022-11-15] MEDS: METOLAZONE 2.5 MG TABLET (FP) PO SCH (10:28)
[2022-11-15 10:49] LABS: ALBUMIN 2.5 g/dl (3.4-5.0); BILIRUBIN,TOTAL 0.6 mg/dL (0.2-1); BLOOD UREA NITROGEN 51.9 mg/dL (7-18); CREATININE 1.8 mg/dL (0.55-1.3); MAGNESIUM 1.7 mg/dL (1.8-2.4); TOT PROT 5.4 g/dl (6.4-8.2)
[2022-11-15] MEDS ORDERED: MAGNESIUM OXIDE 400 MG TABLET (FP) PO ONE (10:55)
[2022-11-15] MEDS ORDERED: POTASSIUM CHLORIDE ORAL LIQUID 20 MEQ/15 ML PO ONE (10:55)
[2022-11-15 10:57] LABS: HEMATOCRIT 23.7 % (35.4-49); HEMOGLOBIN 8.2 GM/dL (11.7-16.9); LYMPH % 14.2 % (8-40); MCH 28.8 pg (25.7-33.7); MCHC 34.3 g/dl (32.0-35.9); MEAN CELL VOLUME 83.9 fl (80-96); MEAN PLT VOLUME 7.7 fl (7.5-11.1); MONO % 7.3 % (3.8-10.2); NEUT % 73.5 % (42.8-82.8); PLATELET COUNT 172 10^3/uL (134-434); RBC 2.83 M/mm3 (4.00-5.60); RDW 18.6 % (11.9-15.9); WHITE BLOOD COUNT 6.6 K/mm3 (4.0-10.0)
[2022-11-15 12:28] LABS: RETICULOCYTES 1.08 % (0.5-1.5)
[2022-11-15 14:21] VITALS: BP 125/63; PULSE 91; RESP 18; TEMP 99.4
[2022-11-15] MEDS ORDERED: AMOX TR/POT CLAV 500MG/125MG TABLETS (FP) PO SCH (17:30)
[2022-11-15] MEDS ORDERED: TAMSULOSIN HCL 0.4 MG CAP PO SCH (17:39)
== END 2022-11-15 14:33 | disposition home or self-care (01) | DRG 637 ==
LOC: JER 11:09 → JERBED 17:37 → J5S 20:59
PROVIDERS: ADMIT Internal Medicine; ATTEND Nurse Practitioner Family
PROC: 30233N1 Transfusion of Nonautologous Red Blood Cells into Peripheral Vein, Percutaneous Approach (ICD-10-PCS; principal; 2022-11-14)
DX: E11.649 Type 2 diabetes mellitus with hypoglycemia without coma (principal); G93.41 Metabolic encephalopathy; I13.0 Hypertensive heart and chronic kidney disease with heart failure and stage 1 through stage 4 chronic kidney disease, or unspecified chronic kidney disease; N39.0 Urinary tract infection, site not specified; E11.22 Type 2 diabetes mellitus with diabetic chronic kidney disease; E11.621 Type 2 diabetes mellitus with foot ulcer; N18.9 Chronic kidney disease, unspecified; D63.1 Anemia in chronic kidney disease; L97.519 Non-pressure chronic ulcer of other part of right foot with unspecified severity; I48.91 Unspecified atrial fibrillation; E78.5 Hyperlipidemia, unspecified; I50.9 Heart failure, unspecified
CPT/HCPCS: 0241U-QW; 36415; 36430; 36511; 70450-TC; 71045-TC-FY; 71250-TC; 80048; 80053; 81003; 82272; 82607; 82728; 82746; 82803; 82962; 83036; 83540; 83550; 83605; 83735; 84100; 84484; 85025; 85045; 85610; 85730; 86850; 86900; 86901; 86922; 87040; 87086; 87186; 93005; 93010; 93970-TC; 97161-GP; 99285-25; P9038; P9058

== ENCOUNTER 2023-07-09 07:35 | Day surgery (SDC) | payer OTHER ==
[2023-07-04 17:37] VITALS: BMI 31.4
[2023-07-09] MEDS ORDERED: PROPOFOL 160 ML ONE (07:45)
[2023-07-09 09:42] VITALS: TEMP 98
[2023-07-09 09:44] VITALS: BP 130/71; PULSE 73; RESP 19
== END 2023-07-09 09:55 | disposition home or self-care (01) ==
LOC: FASU-ENDO 07:35
PROVIDERS: ATTEND Internal Medicine Gastroenterology
PROC: 0DB68ZX Excision of Stomach, Via Natural or Artificial Opening Endoscopic, Diagnostic (ICD-10-PCS; 2023-07-09)
PROC: 0DBN8ZX Excision of Sigmoid Colon, Via Natural or Artificial Opening Endoscopic, Diagnostic (ICD-10-PCS; principal; 2023-07-09 08:29)
DX: Z12.11 Encounter for screening for malignant neoplasm of colon (principal); D50.0 Iron deficiency anemia secondary to blood loss (chronic); D12.5 Benign neoplasm of sigmoid colon; K57.30 Diverticulosis of large intestine without perforation or abscess without bleeding; Z86.010 Personal history of colon polyps; K29.50 Unspecified chronic gastritis without bleeding; R19.5 Other fecal abnormalities
CPT/HCPCS: 82962; 88305-TC; 88342-TC